=== PATIENT | female | born 1965 | race Caucasian/White ===

== ENCOUNTER 2025-05-04 01:06 | Inpatient (IN) ==
[2025-05-04] MEDS: IPRATROPIUM/ALBUTEROL 3 ML AMPUL.NEB NEB ONE ×3 (01:54→02:54)
[2025-05-04 02:16] LABS: Basophils # (Auto) 0.02 K/mcL (0.00-0.30); Basophils % (Auto) 0.3 % (0.0-2.0); Eosinophils # (Auto) 0.15 K/mcL (0.00-0.70); Eosinophils % (Auto) 2.2 % (0.0-7.0); Hematocrit 48.8 % (34.1-44.9); Hemoglobin 14.9 g/dL (11.2-15.7); Lymphocytes # (Auto) 1.41 K/mcL (1.50-4.80); Lymphocytes % (Auto) 20.6 % (15.5-49.0); Mean Corpuscular HGB Conc 30.5 g/dL (31.0-36.0); Monocytes # (Auto) 0.62 K/mcL (0.10-0.90); Monocytes % (Auto) 9.0 % (1.0-12.0); Neutrophils % (Auto) 67.5 % (38.0-78.0); Platelet Count 270 K/mcL (140-440); RBC 5.27 M/mcL (3.59-5.38); WBC 6.9 K/mcL (4.5-11.0)
[2025-05-04 02:28] LABS: ALT/SGPT 30 U/L (<40); AST/SGOT 26 U/L (<32); Albumin 4.0 gm/dL (3.2-5.2); Albumin/Globulin Ratio 1.2 (1.0-2.3); Alkaline Phosphatase 116 U/L (39-117); Anion Gap 14.0 (8.0-16.0); Bilirubin,Total 0.5 mg/dL (0.1-1.0); Blood Urea Nitrogen 29 mg/dL (8-23); Calcium 9.3 mg/dL (8.6-10.4); Carbon Dioxide 28 mmol/L (22-30); Chloride 104 mmol/L (96-108); Globulin 3.4 gm/dL (2.2-3.7); Glucose 102 mg/dL (70-105); Potassium 3.7 mmol/L (3.3-5.1); Sodium 146 mmol/L (133-145)
[2025-05-04] MEDS: FUROSEMIDE 100 MG/10 ML VIAL IV ONE (02:55)
[2025-05-04] MEDS: ALBUTEROL SULFATE 2.5 MG/3 ML NEBULIZER NEB ONE ×2 (04:00→06:40)
[2025-05-04] MEDS: IBUPROFEN 600 MG TABLET PO ONE (06:10)
[2025-05-04] MEDS: BUDESONIDE 0.5 MG/2 ML AMPUL.NEB NEB ONE (07:10)
[2025-05-04] MEDS ORDERED: IPRATROPIUM/ALBUTEROL 3 ML AMPUL.NEB NEB PRN ×2 (08:10→08:16)
[2025-05-04] MEDS ORDERED: ACETAMINOPHEN 325 MG TABLET PO PRN (08:10)
[2025-05-04] MEDS ORDERED: ALBUTEROL SULFATE 2.5 MG/3 ML NEBULIZER NEB PRN (08:10)
[2025-05-04] MEDS ORDERED: ONDANSETRON 4 MG/2 ML VIAL IV PRN ×2 (08:10→08:16)
[2025-05-04] MEDS ORDERED: POTASSIUM CHLORIDE 40 MEQ in DEXTROSE 5% IN WATER 500 ML IV PRN (08:16)
[2025-05-04] MEDS ORDERED: POTASSIUM CHLORIDE 20 MEQ TABLET PO PRN ×2 (08:16)
[2025-05-04] MEDS ORDERED: POLYETHYLENE GLYCOL 3350 17 GM PACKET PO PRN (08:16)
[2025-05-04] MEDS ORDERED: METOCLOPRAMIDE 10 MG/2 ML VIAL IV PRN (08:16)
[2025-05-04] MEDS ORDERED: SENNOSIDES 1 TABLET PO PRN (08:16)
[2025-05-04] MEDS ORDERED: MAGNESIUM SULFATE 2 GM/50 ML BAG IV PRN (08:16)
[2025-05-04 09:28] LABS: C-Reactive Protein 3.01 mg/dL (0.03-0.80)
[2025-05-04] MEDS: ASPIRIN 325 MG ENTERIC COATED TABLET PO ONE (11:13)
[2025-05-04] MEDS: DOCUSATE SODIUM 100 MG CAPSULE PO SCH (11:14)
[2025-05-04] MEDS: MAGNESIUM SULFATE 1 GM/100 ML BAG IV ONE ×2 (11:15→11:42)
[2025-05-04] MEDS: ENOXAPARIN 40 MG/0.4 ML SYRINGE SQ SCH (11:19)
[2025-05-04] MEDS ORDERED: METHOCARBAMOL 750 MG TABLET PO PRN (11:23)
[2025-05-04] MEDS: IPRATROPIUM/ALBUTEROL 3 ML AMPUL.NEB NEB SCH (13:10)
[2025-05-04] MEDS: LIDOCAINE 4% TOP PATCH TOPICAL SCH (16:30)
[2025-05-04] MEDS: FUROSEMIDE 40 MG/4 ML VIAL IV SCH (16:30)
[2025-05-04] MEDS: ACETAMINOPHEN 325 MG TABLET PO PRN (19:34)
[2025-05-04] MEDS: FLUTICASONE/SALMETEROL 500/50 INHALER #14 INH SCH (21:12)
[2025-05-05 06:28] LABS: Basophils # (Auto) 0.01 K/mcL (0.00-0.30); Basophils % (Auto) 0.1 % (0.0-2.0); Eosinophils # (Auto) 0 K/mcL (0.00-0.70); Eosinophils % (Auto) 0 % (0.0-7.0); Hematocrit 45.4 % (34.1-44.9); Hemoglobin 13.7 g/dL (11.2-15.7); Lymphocytes # (Auto) 0.45 K/mcL (1.50-4.80); Lymphocytes % (Auto) 6.6 % (15.5-49.0); Mean Corpuscular HGB Conc 30.2 g/dL (31.0-36.0); Monocytes # (Auto) 0.27 K/mcL (0.10-0.90); Monocytes % (Auto) 4.0 % (1.0-12.0); Neutrophils % (Auto) 89.0 % (38.0-78.0); Platelet Count 252 K/mcL (140-440); RBC 4.76 M/mcL (3.59-5.38); WBC 6.8 K/mcL (4.5-11.0)
[2025-05-05 06:59] LABS: ALT/SGPT 29 U/L (<40); AST/SGOT 17 U/L (<32); Albumin 3.6 gm/dL (3.2-5.2); Albumin/Globulin Ratio 1.2 (1.0-2.3); Alkaline Phosphatase 103 U/L (39-117); Anion Gap 12.0 (8.0-16.0); Bilirubin,Direct 0.2 mg/dL (<0.3); Bilirubin,Total 0.4 mg/dL (0.1-1.0); Blood Urea Nitrogen 29 mg/dL (8-23); Calcium 9.0 mg/dL (8.6-10.4); Carbon Dioxide 31 mmol/L (22-30); Chloride 98 mmol/L (96-108); Globulin 2.9 gm/dL (2.2-3.7); Glucose 128 mg/dL (70-105); Phosphorous 4.7 mg/dL (2.5-4.5); Potassium 3.6 mmol/L (3.3-5.1); Sodium 141 mmol/L (133-145); Triglycerides 67 mg/dL (<150); Uric Acid 5.2 mg/dL (2.5-8.0)
[2025-05-05] MEDS: UMECLIDINIUM INH SCH (10:05)
[2025-05-06 06:54] LABS: Basophils # (Auto) 0.01 K/mcL (0.00-0.30); Basophils % (Auto) 0.1 % (0.0-2.0); Eosinophils # (Auto) 0.04 K/mcL (0.00-0.70); Eosinophils % (Auto) 0.5 % (0.0-7.0); Hematocrit 43.3 % (34.1-44.9); Hemoglobin 13.2 g/dL (11.2-15.7); Lymphocytes # (Auto) 1.72 K/mcL (1.50-4.80); Lymphocytes % (Auto) 21.6 % (15.5-49.0); Mean Corpuscular HGB Conc 30.5 g/dL (31.0-36.0); Monocytes # (Auto) 0.80 K/mcL (0.10-0.90); Monocytes % (Auto) 10.1 % (1.0-12.0); Neutrophils % (Auto) 67.6 % (38.0-78.0); Platelet Count 255 K/mcL (140-440); RBC 4.61 M/mcL (3.59-5.38); WBC 8.0 K/mcL (4.5-11.0)
[2025-05-06 07:24] LABS: C-Reactive Protein 0.90 mg/dL (0.03-0.80)
[2025-05-06 07:53] LABS: Anion Gap 10.0 (8.0-16.0); Blood Urea Nitrogen 37 mg/dL (8-23); Calcium 8.8 mg/dL (8.6-10.4); Carbon Dioxide 34 mmol/L (22-30); Chloride 97 mmol/L (96-108); Glucose 94 mg/dL (70-105); Potassium 3.1 mmol/L (3.3-5.1); Sodium 141 mmol/L (133-145)
[2025-05-06] MEDS: POTASSIUM CHLORIDE 20 MEQ TABLET PO ONE (10:42)
[2025-05-06] MEDS: IPRATROPIUM/ALBUTEROL 3 ML AMPUL.NEB NEB SCH (20:29)
[2025-05-06] MEDS: POTASSIUM CHLORIDE 20 MEQ TABLET PO SCH (21:06)
[2025-05-06] MEDS: FUROSEMIDE 40 MG/4 ML VIAL IV SCH (21:09)
[2025-05-06] MEDS: acetaZOLAMIDE SOD 500 MG VIAL IV SCH (21:10)
[2025-05-07] MEDS: IPRATROPIUM/ALBUTEROL 3 ML AMPUL.NEB NEB SCH (01:42)
[2025-05-07 06:42] LABS: Basophils # (Auto) 0.01 K/mcL (0.00-0.30); Basophils % (Auto) 0.1 % (0.0-2.0); Eosinophils # (Auto) 0.05 K/mcL (0.00-0.70); Eosinophils % (Auto) 0.7 % (0.0-7.0); Hematocrit 45.2 % (34.1-44.9); Hemoglobin 13.8 g/dL (11.2-15.7); Lymphocytes # (Auto) 1.61 K/mcL (1.50-4.80); Lymphocytes % (Auto) 22.2 % (15.5-49.0); Mean Corpuscular HGB Conc 30.5 g/dL (31.0-36.0); Monocytes # (Auto) 0.93 K/mcL (0.10-0.90); Monocytes % (Auto) 12.8 % (1.0-12.0); Neutrophils % (Auto) 64.1 % (38.0-78.0); Platelet Count 258 K/mcL (140-440); RBC 4.85 M/mcL (3.59-5.38); WBC 7.2 K/mcL (4.5-11.0)
[2025-05-07 07:03] LABS: C-Reactive Protein 0.78 mg/dL (0.03-0.80)
[2025-05-07 07:10] LABS: Anion Gap 8.0 (8.0-16.0); Blood Urea Nitrogen 28 mg/dL (8-23); Calcium 9.2 mg/dL (8.6-10.4); Carbon Dioxide 35 mmol/L (22-30); Chloride 99 mmol/L (96-108); Glucose 88 mg/dL (70-105); Potassium 3.6 mmol/L (3.3-5.1); Sodium 142 mmol/L (133-145)
[2025-05-07] MEDS: POTASSIUM CHLORIDE 20 MEQ TABLET PO SCH (14:31)
[2025-05-07] MEDS: FUROSEMIDE 40 MG/4 ML VIAL IV SCH (14:32)
[2025-05-07] MEDS: acetaZOLAMIDE SOD 500 MG VIAL IV SCH (14:32)
[2025-05-08 06:15] LABS: Basophils # (Auto) 0.01 K/mcL (0.00-0.30); Basophils % (Auto) 0.1 % (0.0-2.0); Eosinophils # (Auto) 0.06 K/mcL (0.00-0.70); Eosinophils % (Auto) 0.9 % (0.0-7.0); Hematocrit 46.8 % (34.1-44.9); Hemoglobin 14.2 g/dL (11.2-15.7); Lymphocytes # (Auto) 1.76 K/mcL (1.50-4.80); Lymphocytes % (Auto) 25.5 % (15.5-49.0); Mean Corpuscular HGB Conc 30.3 g/dL (31.0-36.0); Monocytes # (Auto) 0.87 K/mcL (0.10-0.90); Monocytes % (Auto) 12.6 % (1.0-12.0); Neutrophils % (Auto) 60.8 % (38.0-78.0); Platelet Count 268 K/mcL (140-440); RBC 5.03 M/mcL (3.59-5.38); WBC 6.9 K/mcL (4.5-11.0)
[2025-05-08 06:35] LABS: Anion Gap 10.0 (8.0-16.0); Blood Urea Nitrogen 28 mg/dL (8-23); Calcium 9.3 mg/dL (8.6-10.4); Carbon Dioxide 32 mmol/L (22-30); Chloride 99 mmol/L (96-108); Glucose 87 mg/dL (70-105); Potassium 3.7 mmol/L (3.3-5.1); Sodium 141 mmol/L (133-145)
[2025-05-08] MEDS: IPRATROPIUM/ALBUTEROL 3 ML AMPUL.NEB NEB SCH (18:21)
[2025-05-09 05:54] LABS: Basophils # (Auto) 0.01 K/mcL (0.00-0.30); Basophils % (Auto) 0.1 % (0.0-2.0); Eosinophils # (Auto) 0.10 K/mcL (0.00-0.70); Eosinophils % (Auto) 1.4 % (0.0-7.0); Hematocrit 47.0 % (34.1-44.9); Hemoglobin 14.2 g/dL (11.2-15.7); Lymphocytes # (Auto) 1.70 K/mcL (1.50-4.80); Lymphocytes % (Auto) 23.4 % (15.5-49.0); Mean Corpuscular HGB Conc 30.2 g/dL (31.0-36.0); Monocytes # (Auto) 0.83 K/mcL (0.10-0.90); Monocytes % (Auto) 11.4 % (1.0-12.0); Neutrophils % (Auto) 63.7 % (38.0-78.0); Platelet Count 238 K/mcL (140-440); RBC 5.03 M/mcL (3.59-5.38); WBC 7.3 K/mcL (4.5-11.0)
[2025-05-09 06:37] LABS: Anion Gap 9.0 (8.0-16.0); Blood Urea Nitrogen 25 mg/dL (8-23); Calcium 9.1 mg/dL (8.6-10.4); Carbon Dioxide 31 mmol/L (22-30); Chloride 100 mmol/L (96-108); Glucose 86 mg/dL (70-105); Potassium 3.8 mmol/L (3.3-5.1); Sodium 140 mmol/L (133-145)
[2025-05-10 06:34] LABS: Basophils # (Auto) 0.01 K/mcL (0.00-0.30); Basophils % (Auto) 0.1 % (0.0-2.0); Eosinophils # (Auto) 0.12 K/mcL (0.00-0.70); Eosinophils % (Auto) 1.5 % (0.0-7.0); Hematocrit 48.2 % (34.1-44.9); Hemoglobin 14.6 g/dL (11.2-15.7); Lymphocytes # (Auto) 1.78 K/mcL (1.50-4.80); Lymphocytes % (Auto) 22.5 % (15.5-49.0); Mean Corpuscular HGB Conc 30.3 g/dL (31.0-36.0); Monocytes # (Auto) 0.89 K/mcL (0.10-0.90); Monocytes % (Auto) 11.3 % (1.0-12.0); Neutrophils % (Auto) 64.5 % (38.0-78.0); Platelet Count 260 K/mcL (140-440); RBC 5.15 M/mcL (3.59-5.38); WBC 7.9 K/mcL (4.5-11.0)
[2025-05-10 06:50] LABS: Anion Gap 10.0 (8.0-16.0); Blood Urea Nitrogen 23 mg/dL (8-23); Calcium 9.0 mg/dL (8.6-10.4); Carbon Dioxide 28 mmol/L (22-30); Chloride 100 mmol/L (96-108); Glucose 82 mg/dL (70-105); Potassium 4.0 mmol/L (3.3-5.1); Sodium 138 mmol/L (133-145)
[2025-05-10 16:38] VITALS: TEMP 97.8; O2SAT 93
== END 2025-05-10 17:18 | disposition home health service (06) | DRG 190 ==
LOC: ED 01:06 → ICU 09:11 → MEDSUR 05-05 21:20
PROVIDERS: ADMIT Internal Medicine; ATTEND Student in an Organized Health Care Education/Training Program